=== PATIENT | female | born 1990 | race African-American/Black ===

== ENCOUNTER 2020-04-23 10:38 | Outpatient (REF) | payer OTHER, SELFPAY ==
--- NOTE | 2020-04-23 | MR_ITS ---
CERVICAL AND THORACIC SPINE MRI WITH AND WITHOUT IV CONTRAST CLINICAL INFORMATION: Paraparesis. COMPARISON: None available. TECHNIQUE: Multiplanar multisequence MR imaging of the cervical and thoracic spine obtained without and following the administration of 5 mL of Gadavist intravenous contrast without complication. FINDINGS: CERVICAL SPINE MRI: Reversal of the cervical lordosis. The vertebral body heights are maintained. The disc lines are preserved. There is no bone marrow edema. There are no acute fractures. Accounting for artifact, there is no definite cervical cord signal abnormality. There are no enhancing cervical cord lesions. No enhancing intraosseous lesions. The cervical arterial flow voids are maintained. There are no significant soft tissue findings. The cervical disc contours remain within normal limits. There is no central canal stenosis and there is no foraminal stenosis within the cervical spine. THORACIC SPINE MRI: There are 12 rib bearing thoracic type vertebral bodies. Thoracic alignment is maintained. The vertebral body heights are preserved. The disc volumes are maintained. There is no bone marrow edema. There are no acute fractures. No definite cord signal abnormality accounting for artifact. No enhancing thoracic cord lesions accounting for artifact. Thoracic disc contours are normal. No central canal stenosis and no foraminal stenosis within the thoracic spine. MR/MR cervical spine wo/w con IMPRESSION: Reversal of the cervical lordosis. Otherwise unremarkable MRI of the cervical and thoracic spine.
== END 2020-04-23 10:39 | disposition home or self-care (01) ==
LOC: HO.MRI 10:38
PROVIDERS: Visit Provider Psychiatry & Neurology Neurology
DX: G82.20 Paraplegia, unspecified (principal)
CPT/HCPCS: 72156; 72157; A9585

== ENCOUNTER → 2020-05-15 14:06 | Outpatient (BNVA) | payer OTHER, SELFPAY | PROVIDERS: PCP Internal Medicine; Visit Provider Anesthesiology | DX: G89.4 Chronic pain syndrome (principal); M79.7 Fibromyalgia | CPT/HCPCS: 99202 ==

== ENCOUNTER → 2020-06-02 10:31 | Day surgery (SDC) | payer OTHER, SELFPAY ==
[2020-06-02 10:33] VITALS: BMI 20.1
[2020-06-02 10:34] VITALS: BMI 20.1
[2020-06-02 10:46] VITALS: BP 97/56; PULSE 81; RESP 18; TEMP 36.3; O2SAT 99
[2020-06-02 10:50] VITALS: BMI 20.1
[2020-06-02 11:03] LABS: UPreg QC Valid A; Urine Pregnancy NEGATIVE (NEGATIVE)
[2020-06-02 11:14] LABS: MANUAL DIFF FLAG NO
[2020-06-02 11:20] LABS: Basophils Absolute Auto 0.1 X10*3/uL (0.0-0.2); Basophils Percent Auto 0.6 % (0-2); Eosinophils Absolute Auto 0.1 X10*3/uL (0.0-0.4); Hematocrit 34.2 % (37-47); Hemoglobin 11.2 g/dl (12.0-16.0); Imm Gran Abs Auto 0.04 X10*3/uL (0.00-0.03); Imm Gran Pct Auto 0.4 % (0.0-0.4); Lymphocytes Absolute Auto 3.1 X10*3/uL (1.2-4.9); Lymphocytes Percent Auto 27.7 % (20-40); Mean Corpuscular HGB Conc 32.7 g/dl (31.0-35.0); Mean Corpuscular Hemoglobin 29.7 pg (27.0-33.0); Mean Corpuscular Volume 90.7 fL (80-98); Mean Platelet Volume 10.4 fL (9.4-12.3); Monocytes Absolute Auto 0.6 X10*3/uL (0.1-1.2); Monocytes Percent Auto 5.6 % (2-11); Neutrophils Absolute Auto 7.3 X10*3/uL (2.0-8.3); Neutrophils Percent Auto 64.7 % (45-73); Platelet Count 195 X10*3/uL (160-400); Red Blood Count 3.77 X10*6/uL (4.20-5.50); Red Cell Distribution Width 13.9 % (11.0-16.0); White Blood Count 11.2 X10*3/uL (4.8-10.8)
[2020-06-02 11:27] LABS: INTERNATIONAL NORM RATIO 1.1 (0.9-1.1); Prothrombin Time 13.3 SEC (10.8-13.0)
[2020-06-02 11:30] LABS: Partial Thromboplastin Time 35.4 SEC (24.1-38.0)
== END ==
PROVIDERS: Radiology Diagnostic Radiology; Visit Provider Radiology Diagnostic Radiology
DX: G82.20 Paraplegia, unspecified (principal); Z53.9 Procedure and treatment not carried out, unspecified reason
CPT/HCPCS: 36415; 81025; 85025; 85610; 85730

== ENCOUNTER → 2020-06-05 08:38 | Outpatient (BNVA) | payer OTHER, SELFPAY | PROVIDERS: PCP Internal Medicine; Visit Provider Anesthesiology | DX: G89.4 Chronic pain syndrome (principal); M79.7 Fibromyalgia; F12.90 Cannabis use, unspecified, uncomplicated | CPT/HCPCS: 99212 ==